=== PATIENT | male | born 1945 | race Caucasian/White ===

== ENCOUNTER → 2018-07-11 | Outpatient (REF) ==
[~2018-07-11] MED LIST: ALLERGY NA50 MCG/ACT IN; DICLOFENAC50 MG PO; Levaquin PO; MEDDOSEPAK PO; MELATONIN5 M3 PO; METOPROL TAR25 M1 PO; OMEPRAZOLE20 MG PO; PRAVASTATIN40 MG PO; SG ASA LOW81 M1 PO; TRAMADOL HYDROC50 MG PO
== END | disposition home or self-care (01) | DRG 305 ==
LOC: LAB 08:19
PROVIDERS: ATTEND Nurse Practitioner Adult Health
DX: I10 Essential (primary) hypertension (principal)

== ENCOUNTER 2018-11-11 06:42 | Day surgery (SDC) | payer MEDICARE ==
[~2018-11-11] VITALS: Ht 172.7 cm; Wt 81.6 kg
[~2018-11-11 06:42] MED LIST changes: +ALLEGRA180 MG PO; +VIAGRA100 MG PO; +VITAMIN B-12500 MCG PO
[2018-11-11] MEDS ORDERED: PERCOCET 5/325M1 TAB PO (09:23)
[2018-11-11] MEDS ORDERED: TORADOL PO (09:24)
[2018-11-11 10:30] VITALS: BP 124/66
== END 2018-11-11 11:02 | disposition home or self-care (01) ==
LOC: ORM 06:42
PROVIDERS: ATTEND Surgery
PROC: 0YU50JZ Supplement Right Inguinal Region with Synthetic Substitute, Open Approach (ICD-10-PCS; principal; 2018-11-11)
PROC: 0VBF0ZZ Excision of Right Spermatic Cord, Open Approach (ICD-10-PCS; 2018-11-11)
DX: D17.6 Benign lipomatous neoplasm of spermatic cord (principal); F17.210 Nicotine dependence, cigarettes, uncomplicated; K40.90 Unilateral inguinal hernia, without obstruction or gangrene, not specified as recurrent
CPT/HCPCS: C9290; J0131